=== PATIENT | female | born 1975 | race African-American/Black ===

== ENCOUNTER 2017-06-15 07:31 | Emergency (ER) | payer SELFPAY ==
[2017-06-15 08:02] LABS: Absolute Monocytes 0.4 K/uL (0.1-1.3); Absolute Neutrophil 2.4 K/uL (1.8-8.0); Eosinophils % 2.5 % (0-4.4); Hematocrit 45.1 % (36.0-45.0); Lymphocytes % 50.1 % (15.3-44.8); MCH 27.3 pg (27.0-35.0); Monocytes % 6.8 % (3.3-12.3)
[2017-06-15 08:07] LABS: Protime INR 1.07
[2017-06-15 08:13] LABS: Potassium 3.4 mEq/L (3.6-5.0)
[2017-06-15 08:19] LABS: Albumin 4.5 g/dL (3.2-5.5); Bilirubin Direct 0.1 mg/dL (0-0.2); Bilirubin Total 0.6 mg/dL (0.3-1.2); Magnesium 1.9 mg/dL (1.8-2.5); Protein, Total 7.6 g/dL (6.0-8.3)
[2017-06-15] MEDS ORDERED: LORazepam 2 MG/ML VIAL ONE (08:22)
[2017-06-15] MEDS ORDERED: NA CHLORIDE 0.9% 500 ML ONE (08:22)
[2017-06-15] MEDS ORDERED: METOPROLOL TARTRATE 5 MG/5 ML INJ IV ONE (08:54)
--- NOTE | 2017-06-15 08:56 | RAD REPORT ---
EXAM DESCRIPTION: RAD - Chest Single View - 06/15/2017 8:21 am CLINICAL HISTORY: Chest pain. COMPARISON: 06/02/2017 FINDINGS: Portable technique limits examination quality. The lungs are grossly clear. The heart is normal in size. No displaced fractures. IMPRESSION: No acute intrathoracic process suspected.
--- NOTE | 2017-06-15 09:34 | EDPHYS ---
Physician Documentation [facility] Name: Rebecca Louis Age: 41 yrs Sex: Female : 1975 Arrival Date: 06/15/2017 Time: 07:33 Bed 17 Private MD: ED Physician Jaden Valderrama HPI: 06/15 08:31 This 41 yrs old Black Female presents to ER via Ambulatory with complaints of High kdr Blood Pressure. 08:31 The patient has elevated blood pressure and discovered this at home. Onset: The kdr symptoms/episode began/occurred gradually, yesterday. Modifying factors: The symptoms are aggravated by activity. Associated signs and symptoms: Pertinent positives: chest pain. Severity of symptoms: At its worst the blood pressure was moderate, severe, just prior to arrival, in the emergency department the blood pressure is unchanged. The patient has experienced similar episodes in the past, a few times. The patient has not recently seen a physician. 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 - Social history:: Smoking status: Patient/guardian denies using tobacco, Patient/guardian denies using alcohol, street drugs. ROS: 08:31 Constitutional: Negative for fever, chills, and weight loss, Eyes: Negative for injury, kdr pain, redness, and discharge, ENT: Negative for injury, pain, and discharge, Neck: Negative for injury, pain, and swelling, Respiratory: Negative for shortness of breath, cough, wheezing, and pleuritic chest pain, Abdomen/GI: Negative for abdominal pain, nausea, vomiting, diarrhea, and constipation, Back: Negative for injury and pain, : Negative for injury, bleeding, discharge, and swelling, MS/Extremity: Negative for injury and deformity, Skin: Negative for injury, rash, and discoloration, Neuro: Negative for headache, weakness, numbness, tingling, and seizure activity. Allergy/Immunology: Negative for hives, rash, and allergies, Endocrine: Negative for neck swelling, polydipsia, polyuria, polyphagia, and marked weight changes, Hematologic/Lymphatic: Negative for swollen nodes, abnormal bleeding, and unusual bruising. 08:31 Cardiovascular: Positive for chest pain, Negative for edema, orthopnea, palpitations, paroxysmal nocturnal dyspnea, acute changes. 08:31 Psych: Positive for anxiety, Negative for depression, drug dependence, alcohol dependence, auditory hallucinations, visual hallucinations, homicidal ideation, insomnia, suicide gesture, suicidal ideation. Exam: 08:31 Constitutional: This is a well developed, well nourished patient who is awake, alert, kdr and in moderate distress. Head/Face: Normocephalic, atraumatic. Eyes: Pupils equal round and reactive to light, extra-ocular motions intact. Lids and lashes normal. Conjunctiva and sclera are non-icteric and not injected. Cornea within normal limits. Periorbital areas with no swelling, redness, or edema. Neck: Trachea midline, no thyromegaly or masses palpated, and no cervical lymphadenopathy. Supple, full range of motion without nuchal rigidity, or vertebral point tenderness. No Meningismus. Chest/axilla: Normal chest wall appearance and motion. Nontender with no deformity. No lesions are appreciated. Respiratory: Lungs have equal breath sounds bilaterally, clear to auscultation and percussion. No rales, rhonchi or wheezes noted. No increased work of breathing, no retractions or nasal flaring. Abdomen/GI: Soft, non-tender, with normal bowel sounds. No distension or tympany. No guarding or rebound. No evidence of tenderness throughout. Back: No spinal tenderness. No costovertebral tenderness. Full range of motion. Skin: Warm, dry with normal turgor. Normal color with no rashes, no lesions, and no evidence of cellulitis. MS/ Extremity: Pulses equal, no cyanosis. Neurovascular intact. Full, normal range of motion. Neuro: Awake and alert, GCS 15, oriented to person, place, time, and situation. Cranial nerves II-XII grossly intact. Motor strength 5/5 in all extremities. Sensory grossly intact. Cerebellar exam normal. Normal gait. 08:31 Cardiovascular: Rate: tachycardic, Rhythm: regular, Pulses: no pulse deficits are appreciated, Heart sounds: normal, Edema: is not appreciated, JVD: is not appreciated. 08:31 Psych: Behavior/mood is pleasant, cooperative, anxious, Affect is animated, Oriented to person, place, time, Patient has no thoughts/intents to harm self or others. Judgement / Insight is normal. Memory is normal. Delusions/hallucinations are not present. Vital Signs: 07:43 BP 187 / 118; Pulse 122; Resp 22; Temp 97.7; Pulse Ox 99% on R/A; Weight 79.38 kg; ch Height 5 ft. 2 in. (157.48 cm); Pain 3/10; 08:10 BP 151 / 104; Pulse 98; Resp 16; Temp 98.2; Pulse Ox 99% on R/A; Pain 2/10; ch 08:54 BP 145 / 99; Pulse 95; Resp 15; Pulse Ox 99% on R/A; mh5 09:02 BP 145 / 76; Pulse 86; Resp 16; Temp 98.5; Pulse Ox 99% on R/A; ch 09:34 BP 125 / 89; Pulse 87; Resp 16; Temp 97.8; Pulse Ox 99% on R/A; ch 09:58 BP 135 / 81; Pulse 78; Resp 19; Pulse Ox 98% on R/A; 07:43 Body Mass Index 32.01 (79.38 kg, 157.48 cm) MDM: 08:31 Data reviewed: vital signs, nurses notes, lab test result(s). kdr 09:33 Patient medically screened. [facility] 06/15 07:49 Order name: Basic Metabolic Panel; Complete Time: 09:31 [facility] 06/15 07:49 Order name: BNP; Complete Time: 09:31 [facility] 06/15 07:49 Order name: CBC with Diff; Complete Time: 09:31 [facility] 06/15 07:49 Order name: LFT's; Complete Time: 09:31 [facility] 06/15 07:49 Order name: Magnesium; Complete Time: 09:31 [facility] 06/15 07:49 Order name: PT-INR; Complete Time: 09:31 [facility] 06/15 07:49 Order name: Ptt, Activated; Complete Time: 09:31 [facility] 06/15 07:49 Order name: Troponin (emerg Dept Use Only); Complete Time: 09:31 [facility] 06/15 07:49 Order name: XRAY Chest (1 view); Complete Time: 09:31 [facility] 06/15 08:49 Order name: Urine Dipstick--Ancillary (enter results) bd 06/15 08:49 Order name: Urine --Ancillary (enter results) bd 06/15 07:46 Order name: EKG; Complete Time: 07:47 ch 06/15 07:46 Order name: EKG - Nurse/Tech; Complete Time: 07:59 ch 06/15 07:49 Order name: Cardiac monitoring; Complete Time: 09: kdr 06/15 07:49 Order name: IV Saline Lock; Complete Time: 09: kdr 06/15 07:49 Order name: Labs collected and sent; Complete Time: 09: kdr 06/15 07:49 Order name: O2 Per Protocol; Complete Time: : kdr 06/15 07:49 Order name: O2 Sat Monitoring; Complete Time: : kdr Administered Medications: 08:10 Drug: Ativan 1 mg Route: IVP; Site: right antecubital; ch 09:13 Follow up: Response: No adverse reaction; Marked relief of symptoms ch 08:10 Drug: NS 0.9% 500 ml Route: IV; Rate: bolus; Site: right antecubital; ch 10:15 Follow up: Response: No adverse reaction; IV Status: Completed infusion wh 08:35 Drug: Lopressor 5 mg Route: IVP; Site: right antecubital; ch 08:50 Drug: Lopressor 5 mg Route: IVP; Site: right antecubital; ch 09:14 Follow up: Response: No adverse reaction ch 09:59 Follow up: Response: No adverse reaction; pt bp holding at 130's systolic. pt states ch she feels much better but dizzy when she stands up. third dose held due to pt status. Disposition: 06/15/17 09:33 Discharged to Home. Impression: HTN, poorly controlled; generalized anxiety. - Condition is Stable. - Discharge Instructions: Hypertension, [id number], Generalized Anxiety Disorder. - Prescriptions for Ativan 1 mg Oral Tablet - take 1 tablet by ORAL route every 8-12 hours As needed; 8 tablet. Lopressor 50 mg Oral Tablet - take 1 tablet by ORAL route every 12 hours; 30 tablet. - Medication Reconciliation Form, Thank You Letter form. - Follow up: Private Physician; When: 2 - 3 days; Reason: If symptoms return, Further diagnostic work-up, Recheck today's complaints, Continuance of care, Re-evaluation by your physician. - Problem is an acute exacerbation. - Symptoms are resolved. Signatures: Dispatcher [employer] Hedy Duff, IWONA RN Jaden Valderrama MD MD [facility] Chrissie Rey
--- NOTE | 2017-06-15 09:34 | ER ---
Nurse's Notes [facility] Name: Rebecca Louis Age: 41 yrs Sex: Female : 1975 Arrival Date: 06/15/2017 Time: 07:33 Bed 17 Private MD: Diagnosis: HTN, poorly controlled; generalized anxiety Presentation: 06/15 07:40 Presenting complaint: Patient states: I was seen here a week ago and Dx with hypertension. they gave me norvasc. it gives me hives. I took two this morning though because my pressure was high. chest pain on and off for 3 weeks, headache on and off for 3 weeks, SOB, blurred vision. Transition of care: patient was not received from another setting of care. Onset of symptoms was May 27, 2017. Care prior to arrival: [place]. 07:40 Method Of Arrival: Ambulatory 07:40 Acuity: GABE 3 Triage Assessment: 07:43 General: Appears in no apparent distress. uncomfortable, Behavior is anxious, restless. Pain: Complains of pain in head, back of neck and chest Pain currently is 3 out of 10 on a pain scale. Pain began 3 weeks ago. Is intermittent. Neuro: Level of Consciousness is awake, alert, obeys commands, Oriented to person, place, time, situation, Leather Sponger are equal bilaterally Moves all extremities. Full function Gait is steady, Speech is normal, Facial symmetry appears normal, Facial symmetry: tongue is midline, Pupils are PERRLA. Cardiovascular: Heart tones S1 S2 present. Cardiovascular: Reports chest pain, lightheadedness, nausea, shortness of breath, Capillary refill < 3 seconds in bilateral fingers toes Clubbing of nail beds is absent. Respiratory: Airway is patent Respiratory effort is even, unlabored, Breath sounds are clear bilaterally. GI: No signs and/or symptoms were reported involving the gastrointestinal system. Derm: Skin is pink, warm \T\ dry. Musculoskeletal: No signs and/or symptoms reported regarding the musculoskeletal system. 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 - Social history:: Smoking status: Patient/guardian denies using tobacco, Patient/guardian denies using alcohol, street drugs. Screenin:13 Abuse screen: Denies threats or abuse. Denies injuries from another. Nutritional wh screening: No deficits noted. Tuberculosis screening: No symptoms or risk factors identified. Fall Risk None identified. Assessment: 07:46 Reassessment: Patient appears in no apparent distress at this time. No changes from previously documented assessment. Patient and/or family updated on plan of care and expected duration. Pain level reassessed. pt hands and feet have been swelling intermittnatly. 08:10 Reassessment: Patient appears in no apparent distress at this time. Patient and/or ch family updated on plan of care and expected duration. Pain level reassessed. Patient states feeling better. Patient states symptoms have improved. 08:55 Reassessment: Patient appears in no apparent distress at this time. Patient and/or ch family updated on plan of care and expected duration. Pain level reassessed. Patient is alert, oriented x 3, equal unlabored respirations, skin warm/dry/pink. 09:02 Reassessment: Patient appears in no apparent distress at this time. Patient and/or ch family updated on plan of care and expected duration. Pain level reassessed. Patient is alert, oriented x 3, equal unlabored respirations, skin warm/dry/pink. Patient states feeling better. Patient states symptoms have improved. 09:03 Reassessment: pt states she felt slightly dizzy after administration of second ch metoprolol. will wait to administer third dose. 09:34 Reassessment: Patient appears in no apparent distress at this time. Patient and/or ch family updated on plan of care and expected duration. Pain level reassessed. Patient is alert, oriented x 3, equal unlabored respirations, skin warm/dry/pink. Patient states feeling better. Patient states symptoms have improved. 09:57 Reassessment: AWAITING ERP TO REVIEW RESULTS WITH PT PRIOR TO DISCHARGE. pt ambulatory, denies pain, aaox4, states she feel better. General: Appears in no apparent distress. comfortable, Behavior is calm, cooperative, appropriate for age. Vital Signs: 07:43 BP 187 / 118; Pulse 122; Resp 22; Temp 97.7; Pulse Ox 99% on R/A; Weight 79.38 kg; ch Height 5 ft. 2 in. (157.48 cm); Pain 3/10; 08:10 BP 151 / 104; Pulse 98; Resp 16; Temp 98.2; Pulse Ox 99% on R/A; Pain 2/10; ch 08:54 BP 145 / 99; Pulse 95; Resp 15; Pulse Ox 99% on R/A; 5 09:02 BP 145 / 76; Pulse 86; Resp 16; Temp 98.5; Pulse Ox 99% on R/A; ch 09:34 BP 125 / 89; Pulse 87; Resp 16; Temp 97.8; Pulse Ox 99% on R/A; ch 09:58 BP 135 / 81; Pulse 78; Resp 19; Pulse Ox 98% on R/A; ch 07:43 Body Mass Index 32.01 (79.38 kg, 157.48 cm) ED Course: 07:33 Patient arrived in ED. mr 07:39 Jaden Valderrama MD is Attending Physician. kdr 07:40 Hedy Kat, IWONA is Primary Nurse. ch 07:42 Triage completed. ch 07:43 Arm band placed on left wrist. Patient placed in an exam room, on a stretcher, on diagnostic cardiac sonographer, on pulse oximetry. 07:56 Inserted saline lock: 20 gauge in right antecubital area, using aseptic technique. Blood collected. 07:58 EKG done, by oven technician. reviewed by Jaden Valderrama MD. tc 08:21 XRAY Chest (1 view) In Process Unspecified. EDMS 10:13 Patient has correct armband on for positive identification. Placed in gown. Bed in low wh position. Call light in reach. Side rails up X 1. Pulse ox on. NIBP on. 10:14 No provider procedures requiring assistance completed. IV discontinued, intact, wh bleeding controlled, No redness/swelling at site. Administered Medications: 08:10 Drug: Ativan 1 mg Route: IVP; Site: right antecubital; 09:13 Follow up: Response: No adverse reaction; Marked relief of symptoms 08:10 Drug: NS 0.9% 500 ml Route: IV; Rate: bolus; Site: right antecubital; 10:15 Follow up: Response: No adverse reaction; IV Status: Completed infusion 08:35 Drug: Lopressor 5 mg Route: IVP; Site: right antecubital; 08:50 Drug: Lopressor 5 mg Route: IVP; Site: right antecubital; 09:14 Follow up: Response: No adverse reaction 09:59 Follow up: Response: No adverse reaction; pt bp holding at 130's systolic. pt states ch she feels much better but dizzy when she stands up. third dose held due to pt status. Intake: Outcome: 09:33 Discharge ordered by . kdr 10:14 Discharged to home ambulatory, with family. 10:14 Condition: improved 10:14 Discharge instructions given to patient, family, Instructed on discharge instructions, follow up and referral plans. medication usage, POC hypertension Demonstrated understanding of instructions, follow-up care, medications. 10:15 Patient left the ED. Signatures: Dispatcher [employer] EDHedy Weber RN RN Jaden Summers MD MD kdr Rivera, Maria mr Callis, Tiffany, production scheduler EKG [facility] Teresa Yeager [facility] Chrissie Rey
[2017-06-15 09:40] LABS: Urine Blood TRACE (NEG); Urine Glucose NEGATIVE (NEG); Urine Protein NEGATIVE (NEG)
--- NOTE | 2017-06-15 11:59 | EKG ---
Test Date: 2017-06-15 Test Time: 06:51:42 Alarm Signal Operator: DEVON MEASUREMENT RESULTS: Intervals: Rate: 109 NJ: 142 QRSD: 88 QT: 344 QTc: 463 [place]: P: 70 NJ: 142 QRS: 41 T: 14 INTERPRETIVE STATEMENTS: Sinus tachycardia Nonspecific T wave abnormality Abnormal ECG Compared to ECG 06/02/2017 20:58:23 T-wave abnormality now present Sinus rhythm no longer present Electronically Signed On 06-15-17 11:57:14 CDT by eRdd Aquino
== END 2017-06-15 10:15 | disposition home or self-care (01) ==
LOC: ER 07:31
DX: I10 Essential (primary) hypertension (principal); F41.9 Anxiety disorder, unspecified
CPT/HCPCS: 36415; 71045; 80048; 80076; 81003; 81025; 83735; 83880; 84484; 85025; 85610; 85730; 93005; 96361; 96374; 96375; 99284

== ENCOUNTER 2017-07-19 04:17 | Emergency (ER) | payer SELFPAY ==
--- NOTE | 2017-07-19 04:46 | ER ---
Nurse's Notes [facility] Name: Rebecca Louis Age: 41 yrs Sex: Female : 1975 Arrival Date: 07/19/2017 Time: 04:21 Bed 4 Private MD: Diagnosis: Essential (primary) hypertension Presentation: 07/19 04:34 Presenting complaint: Patient states: I WOKE UP AND FELT ALL RESTLESS AND I CHECKED MY bp PRESSURE AND IT WAS HIGH. Transition of care: patient was not received from another setting of care. Onset of symptoms was July 19, 2017 at 03:00. Care prior to arrival: None. 04:34 Method Of Arrival: Ambulatory bp 04:34 Acuity: GABE 4 bp Triage Assessment: 04:37 General: Appears in no apparent distress. comfortable, Behavior is calm, cooperative, bp appropriate for age. Pain: Denies pain. EENT: No deficits noted. Neuro: Level of Consciousness is awake, alert, obeys commands, Oriented to person, place, time, situation, Appropriate for age. Cardiovascular: No deficits noted. Respiratory: Airway is patent Respiratory effort is even, unlabored, Respiratory pattern is regular, symmetrical. GI: No signs and/or symptoms were reported involving the gastrointestinal system. : No signs and/or symptoms were reported regarding the genitourinary system. Derm: No deficits noted. Musculoskeletal: Circulation, motion, and sensation intact. Range of motion: intact in all extremities. 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 - Social history:: Smoking status: Patient/guardian denies using tobacco. Screenin:39 Abuse screen: Denies threats or abuse. Denies injuries from another. Nutritional bp screening: No deficits noted. Tuberculosis screening: No symptoms or risk factors identified. Fall Risk None identified. Assessment: 04:39 General: SEE TRIAGE NOTE. bp 04:54 Reassessment: PT DC HOME AMBULATORY WITH FAMILY, S/S RELIEVED, DX WITH ESSENTIAL HTN, bp TO F/U WITH PCP. Vital Signs: 04:37 BP 159 / 92; Pulse 74; Resp 18; Temp 98.1; Pulse Ox 100% ; Weight 79.83 kg; Height 5 bp ft. 2 in. (157.48 cm); 04:37 Body Mass Index 32.19 (79.83 kg, 157.48 cm) bp ED Course: 04:21 Patient arrived in ED. al2 04:25 Rogelio Dickens MD is Attending Physician. 04:30 Deven Romero, RN is Primary Nurse. bp 04:35 Triage completed. bp 04:37 Arm band placed on. bp 04:39 Patient has correct armband on for positive identification. Bed in low position. Call bp light in reach. Side rails up X2. Adult w/ patient. 04:44 Issa Deleon MD is Referral Physician. gs 04:55 No provider procedures requiring assistance completed. Patient did not have IV access bp during this emergency room visit. Administered Medications: No medications were administered Outcome: 04:45 Discharge ordered by . gs 04:55 Discharged to home ambulatory, with family. bp 04:55 Condition: stable 04:55 Discharge instructions given to patient, Instructed on discharge instructions, follow up and referral plans. Demonstrated understanding of instructions, follow-up care. 04:55 Patient left the ED. bp Signatures: Rogelio Dickens MD MD Deven Romero, RN RN Chelsey Molina al2
--- NOTE | 2017-07-19 04:46 | EDPHYS ---
Physician Documentation [facility] Name: Rebecca Louis Age: 41 yrs Sex: Female : 1975 Arrival Date: 07/19/2017 Time: 04:21 Bed 4 Private MD: ED Physician Rogelio Dickens HPI: 07/19 06:17 This 41 yrs old Black Female presents to ER via Ambulatory with complaints of High gs Blood Pressure. 06:17 The patient has elevated blood pressure and discovered this at home, with a home gs device. Onset: The symptoms/episode began/occurred today. Modifying factors: The symptoms are aggravated by activity. Associated signs and symptoms: Pertinent negatives: chest pain, dizziness, dyspnea, lightheadedness, vomiting, weakness. Severity of symptoms: At its worst the blood pressure was severe, in the emergency department the blood pressure is improved, moderately. The patient has experienced similar episodes in the past. The patient has not recently seen a physician. 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 - Social history:: Smoking status: Patient/guardian denies using tobacco. ROS: 06:17 All other systems are negative. gs Exam: 06:17 Head/Face: Normocephalic, atraumatic. Eyes: Pupils equal round and reactive to light, gs extra-ocular motions intact. Lids and lashes normal. Conjunctiva and sclera are non-icteric and not injected. Cornea within normal limits. Periorbital areas with no swelling, redness, or edema. ENT: Nares patent. No nasal discharge, no septal abnormalities noted. Tympanic membranes are normal and external auditory canals are clear. Oropharynx with no redness, swelling, or masses, exudates, or evidence of obstruction, uvula midline. Mucous membranes moist. Neck: Trachea midline, no thyromegaly or masses palpated, and no cervical lymphadenopathy. Supple, full range of motion without nuchal rigidity, or vertebral point tenderness. No Meningismus. Chest/axilla: Normal chest wall appearance and motion. Nontender with no deformity. No lesions are appreciated. Cardiovascular: Regular rate and rhythm with a normal S1 and S2. No gallops, murmurs, or rubs. Normal PMI, no JVD. No pulse deficits. Respiratory: Lungs have equal breath sounds bilaterally, clear to auscultation and percussion. No rales, rhonchi or wheezes noted. No increased work of breathing, no retractions or nasal flaring. Abdomen/GI: Soft, non-tender, with normal bowel sounds. No distension or tympany. No guarding or rebound. No evidence of tenderness throughout. Back: No spinal tenderness. No costovertebral tenderness. Full range of motion. Skin: Warm, dry with normal turgor. Normal color with no rashes, no lesions, and no evidence of cellulitis. MS/ Extremity: Pulses equal, no cyanosis. Neurovascular intact. Full, normal range of motion. Neuro: Awake and alert, GCS 15, oriented to person, place, time, and situation. Cranial nerves II-XII grossly intact. Motor strength 5/5 in all extremities. Sensory grossly intact. Cerebellar exam normal. Normal gait. 06:17 Constitutional: The patient appears alert, awake. Vital Signs: 04:37 BP 159 / 92; Pulse 74; Resp 18; Temp 98.1; Pulse Ox 100% ; Weight 79.83 kg; Height 5 bp ft. 2 in. (157.48 cm); 04:37 Body Mass Index 32.19 (79.83 kg, 157.48 cm) bp MDM: 04:44 Patient medically screened. 06:17 Differential diagnosis: hypertensive crisis, Malignant HTN. Data reviewed: vital signs, nurses notes. Counseling: I had a detailed discussion with the patient and/or guardian regarding: the need for outpatient follow up. Response to treatment: the patient's symptoms have markedly improved after treatment, and as a result, I will discharge patient. Administered Medications: No medications were administered Disposition: 07/19/17 04:45 Discharged to Home. Impression: Essential (primary) hypertension. - Condition is Stable. - Discharge Instructions: Hypertension, Managing Your High Blood Pressure. - Medication Reconciliation Form, Thank You Letter, Antibiotic Education, Prescription Opioid Use form. - Follow up: Issa Deleon MD; When: 2 - 3 days; Reason: Re-evaluation by your physician. Signatures: Rogelio Dickens MD MD gs Peltier, Brian, RN RN bp
== END 2017-07-19 04:55 | disposition home or self-care (01) ==
LOC: ER 04:17
DX: I10 Essential (primary) hypertension (principal); F41.9 Anxiety disorder, unspecified
CPT/HCPCS: 99281

== ENCOUNTER 2017-07-29 23:07 | Emergency (ER) | payer SELFPAY ==
[2017-07-29] MEDS ORDERED: cloNIDine HCl 0.1 MG TAB ONE (23:47)
[2017-07-30] MEDS ORDERED: NA CHLORIDE 0.9% 1,000 ML ONE (00:53)
[2017-07-30 01:30] LABS: Absolute Lymphocytes (CBC) 1.9 K/uL (0.7-4.9); Absolute Monocytes 0.4 K/uL (0.1-1.3); Absolute Neutrophil 4.2 K/uL (1.8-8.0); Basophils % 0.9 % (0-1.3); Eosinophils % 2.1 % (0-4.4); Hematocrit 44.8 % (36.0-45.0); Lymphocytes % 28.6 % (15.3-44.8); MCH 27.3 pg (27.0-35.0); MCV 85.5 fL (80-100); MPV 10.1 fL (7.6-11.3); RBC Red Blood Cell Count 5.24 M/uL (3.86-4.86)
[2017-07-30 01:51] LABS: Potassium 4.1 mEq/L (3.6-5.0)
--- NOTE | 2017-07-30 02:14 | EDPHYS ---
Physician Documentation [facility] Name: Rebecca Louis Age: 41 yrs Sex: Female : 1975 Arrival Date: 07/29/2017 Time: 23:08 Bed 8 Private MD: ED Physician Monty Mas HPI: 07/30 00:40 This 41 yrs old Black Female presents to ER via Ambulatory with complaints of High snw Blood Pressure, Anxiety. 00:40 The patient has elevated blood pressure and discovered this at [facility]. Onset: The symptoms/episode began/occurred gradually, 2 month(s) ago. Modifying factors: The symptoms are aggravated by palpitations. Associated signs and symptoms: The patient has no apparent associated signs or symptoms. Severity of symptoms: At its worst the blood pressure was 180 mm Hg. The patient has experienced similar episodes in the past, several times. The patient has not recently seen a physician, Is going to see Dr. Deelon, working out insurance as pt just moved from [place]. Pt states when she has palpitations here blood pressure skyrockets. 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 - Social history:: Smoking status: Patient/guardian denies using tobacco, Patient/guardian denies using alcohol, street drugs. ROS: 07/30 00:39 Eyes: Negative for injury, pain, redness, and discharge, ENT: Negative for injury, snw pain, and discharge, Neck: Negative for injury, pain, and swelling. Respiratory: Negative for shortness of breath, cough, wheezing, and pleuritic chest pain, Abdomen/GI: Negative for abdominal pain, nausea, vomiting, diarrhea, and constipation, Back: Negative for injury and pain, : Negative for injury, bleeding, discharge, and swelling, MS/Extremity: Negative for injury and deformity, Skin: Negative for injury, rash, and discoloration, Neuro: Negative for headache, weakness, numbness, tingling, and seizure. Constitutional: Positive for body aches. Cardiovascular: Positive for palpitations. Psych: Positive for "my mother in law told me I was having panic attacks but I don't know why I would, I've never had them before". Exam: 00:39 Constitutional: This is a well developed, well nourished patient who is awake, alert, snw and in no acute distress. Head/Face: Normocephalic, atraumatic. Eyes: Pupils equal round and reactive to light, extra-ocular motions intact. Lids and lashes normal. Conjunctiva and sclera are non-icteric and not injected. Cornea within normal limits. Periorbital areas with no swelling, redness, or edema. ENT: Nares patent. No nasal discharge, no septal abnormalities noted. Tympanic membranes are normal and external auditory canals are clear. Oropharynx with no redness, swelling, or masses, exudates, or evidence of obstruction, uvula midline. Mucous membranes moist. Neck: Trachea midline, no thyromegaly or masses palpated, and no cervical lymphadenopathy. Supple, full range of motion without nuchal rigidity, or vertebral point tenderness. No Meningismus. Chest/axilla: Normal chest wall appearance and motion. Nontender with no deformity. No lesions are appreciated. Cardiovascular: Regular rate and rhythm with a normal S1 and S2. No gallops, murmurs, or rubs. Normal PMI, no JVD. No pulse deficits. Respiratory: Lungs have equal breath sounds bilaterally, clear to auscultation and percussion. No rales, rhonchi or wheezes noted. No increased work of breathing, no retractions or nasal flaring. Abdomen/GI: Soft, non-tender, with normal bowel sounds. No distension or tympany. No guarding or rebound. No evidence of tenderness throughout. Back: No spinal tenderness. No costovertebral tenderness. Full range of motion. Skin: Warm, dry with normal turgor. Normal color with no rashes, no lesions, and no evidence of cellulitis. MS/ Extremity: Pulses equal, no cyanosis. Neurovascular intact. Full, normal range of motion. Neuro: Awake and alert, GCS 15, oriented to person, place, time, and situation. Cranial nerves II-XII grossly intact. Motor strength 5/5 in all extremities. Sensory grossly intact. Cerebellar exam normal. Normal gait. Vital Signs: 07/29 23:10 BP 165 / 116; Pulse 80; Resp 18; Temp 97.7(O); Pulse Ox 100% on R/A; Weight 78.02 kg fc (R); Height 5 ft. 2 in. (157.48 cm) (R); Pain 5/10; 07/30 00:51 BP 108 / 75; Pulse 68; Resp 18; Pulse Ox 100% on R/A; ak1 02:01 BP 107 / 78; Pulse 68; Resp 16; Temp 97.8; Pulse Ox 99% on R/A; Pain 2/10; ak1 07/29 23:10 Body Mass Index 31.46 (78.02 kg, 157.48 cm) fc MDM: 07/29 23:37 Patient medically screened. snw 07/30 02:15 Data reviewed: vital signs, nurses notes. Data interpreted: Pulse oximetry: on room air snw is 99 %. Interpretation: normal. Counseling: I had a detailed discussion with the patient and/or guardian regarding: the historical points, exam findings, and any diagnostic results supporting the discharge/admit diagnosis, lab results, the need for outpatient follow up, to return to the emergency department if symptoms worsen or persist or if there are any questions or concerns that arise at home. Special discussion: Based on the patient's history, exam, and Dx evaluation, there is no indication for emergent intervention or inpatient Tx. It is understood by the patient/guardian that if the Sx's persist or worsen they need to return immediately for re-evaluation. Based on the history and exam findings, there is no indication for further emergent testing or inpatient evaluation. I discussed with the patient/guardian the need to see the track walker for further evaluation of the symptoms. I discussed with the patient/guardian the need to see the primary care provider for further evaluation of the symptoms. 07/30 00:27 Order name: CBC with Diff; Complete Time: 01:51 snw 07/30 00:27 Order name: Troponin (emerg Dept Use Only); Complete Time: 01:51 snw 07/30 00:27 Order name: TSH; Complete Time: 02:32 snw 07/30 00:27 Order name: Chem 7; Complete Time: 02:32 snw 07/29 23:40 Order name: EKG; Complete Time: 23:41 snw 07/29 23:40 Order name: EKG - Nurse/Tech; Complete Time: 23:49 snw 07/30 01:52 Order name: EKG; Complete Time: 01:52 snw Administered Medications: 07/29 23:49 Drug: cloNIDine 0.1 mg Route: PO; bp 07/30 00:36 Follow up: Response: Marked relief of symptoms bp 01:12 Drug: NS 0.9% 1000 ml Route: IV; Rate: 75 ml/hr; Site: right antecubital; ak1 02:23 Follow up: IV Status: Order to discontinue infusion ak1 Disposition: 14:29 Co-signature as Attending Physician, Monty Mas MD I agree with the assessment and katie plan of care. Disposition: 07/30/17 02:14 Discharged to Home. Impression: Essential (primary) hypertension, Palpitations. - Condition is Stable. - Discharge Instructions: Nonspecific Chest Pain, Hypertension, Palpitations, How to Take Your Blood Pressure, [id number], DASH Eating Plan, Managing Your High Blood Pressure. - Prescriptions for Clonidine 0.1 mg Oral Tablet - take 1 tablet by ORAL route every 8-12 hours only as needed; 30 tablet. - Medication Reconciliation Form, Thank You Letter, Antibiotic Education, Prescription Opioid Use, Work release form, Family Work Release form. - Follow up: Private Physician; When: 2 - 3 days; Reason: Recheck today's complaints, Continuance of care, Re-evaluation by your physician. Follow up: Emergency Department; When: As needed; Reason: Worsening of condition. Signatures: Dispatcher [employer] Monty Ignacio MD MD cha Therrien, Shelly, BABBITT SPINNER-C BABBITT SPINNER-Csnw Nancie Trinidad RN RN Maddi Schultz RN RN ak1 Deven Romero, RN RN bp
--- NOTE | 2017-07-30 02:14 | ER ---
Nurse's Notes [facility] Name: Rebecca Louis Age: 41 yrs Sex: Female : 1975 Arrival Date: 07/29/2017 Time: 23:08 Bed 8 Private MD: Diagnosis: Essential (primary) hypertension;Palpitations Presentation: 07/29 23:10 Presenting complaint: Patient states: that she all of a sudden started to having fc shaking, elevated blood pressure, chest tenderness and increasing anxiety. Denies any shortness of breath, nausea or vomiting. States she did have bad anxiety attack yesterday and thinks maybe that is what is causing her chest tenderness. Transition of care: patient was not received from another setting of care. Onset of symptoms was July 29, 2017. Initial Sepsis Screen: Does the patient meet any 2 criteria? No. Patient's initial sepsis screen is negative. Does the patient have a suspected source of infection? No. Patient's initial sepsis screen is negative. Care prior to arrival: Medication(s) given: Ativan 1 mg at 2300. 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 - Social history:: Smoking status: Patient/guardian denies using tobacco, Patient/guardian denies using alcohol, street drugs. Screenin:10 Abuse screen: Denies threats or abuse. Nutritional screening: No deficits noted. fc Tuberculosis screening: No symptoms or risk factors identified. Fall Risk None identified. Assessment: 23:30 General: Appears in no apparent distress. comfortable, Behavior is cooperative, bp appropriate for age, anxious. Pain: Denies pain. Neuro: Level of Consciousness is awake, alert, obeys commands, Oriented to person, place, time, situation, Appropriate for age. Cardiovascular: Rhythm is sinus rhythm. Respiratory: Airway is patent Respiratory effort is even, unlabored, Respiratory pattern is regular, symmetrical. GI: No signs and/or symptoms were reported involving the gastrointestinal system. : No signs and/or symptoms were reported regarding the genitourinary system. EENT: No deficits noted. Derm: No deficits noted. Musculoskeletal: Circulation, motion, and sensation intact. Range of motion: intact in all extremities. Vital Signs: 23:10 BP 165 / 116; Pulse 80; Resp 18; Temp 97.7(O); Pulse Ox 100% on R/A; Weight 78.02 kg fc (R); Height 5 ft. 2 in. (157.48 cm) (R); Pain 5/10; 07/30 00:51 BP 108 / 75; Pulse 68; Resp 18; Pulse Ox 100% on R/A; ak1 02:01 BP 107 / 78; Pulse 68; Resp 16; Temp 97.8; Pulse Ox 99% on R/A; Pain 2/10; ak1 07/29 23:10 Body Mass Index 31.46 (78.02 kg, 157.48 cm) ED Course: 07/29 23:08 Patient arrived in ED. do 23:10 Arm band placed on Patient placed in an exam room, on a stretcher. fc 23:10 Patient has correct armband on for positive identification. Placed in gown. Bed in low fc position. Call light in reach. secured entrance monitor on. Pulse ox on. NIBP on. 23:29 Triage completed. fc 23:36 Aida Lopez FNP-C is [facility]. snw 23:36 Monty Mas MD is Attending Physician. snw 23:47 Maddi Schultz, IWONA is Primary Nurse. ak1 23:51 EKG done, by ED staff, reviewed by Aida VALLE. cc 07/30 00:51 No provider procedures requiring assistance completed. ak1 01:12 Inserted saline lock: 20 gauge in right antecubital area, using aseptic technique. ak1 Blood collected. 02:23 IV discontinued, intact, bleeding controlled, No redness/swelling at site. Pressure ak1 dressing applied. Administered Medications: 07/29 23:49 Drug: cloNIDine 0.1 mg Route: PO; bp 07/30 00:36 Follow up: Response: Marked relief of symptoms bp 01:12 Drug: NS 0.9% 1000 ml Route: IV; Rate: 75 ml/hr; Site: right antecubital; ak1 02:23 Follow up: IV Status: Order to discontinue infusion ak1 Outcome: 02:14 Discharge ordered by . snw 02:22 Discharged to home ambulatory, with family. ak1 02:22 Condition: stable 02:22 Discharge instructions given to patient, Instructed on discharge instructions, follow up and referral plans. no drinking with medication, no driving heavy equipment, medication usage, Demonstrated understanding of instructions, follow-up care, medications, Prescriptions given X 1. 02:36 Patient left the ED. ak1 Signatures: Aida Lopez, FAMILY LITERACY COORDINATOR-C FAMILY LITERACY COORDINATOR-Csnw Nancie Trinidad RN RN Huong Estrada Amber, RN RN ak1 Harriet Panchal Brian, RN RN bp
[2017-07-30 02:21] LABS: Thyroid Stimulating Hormone 1.66 uIU/mL (0.34-5.60)
--- NOTE | 2017-07-30 16:27 | EKG ---
Test Date: 2017-07-29 Test Time: 23:46:50 Pillowcase Maker: MALINI MEASUREMENT RESULTS: Intervals: Rate: 72 [place]: 166 QRSD: 96 QT: 384 QTc: 420 [place]: P: 66 [place]: 166 QRS: 20 T: 22 INTERPRETIVE STATEMENTS: Normal sinus rhythm Nonspecific ST and T wave abnormality Abnormal ECG Compared to ECG 06/15/2017 06:51:42 ST (T wave) deviation now present Sinus tachycardia no longer present T-wave abnormality no longer present Electronically Signed On 07-30-17 16:23:50 CDT by Redd Aquino
--- NOTE | 2017-07-30 16:27 | EKG ---
Test Date: 2017-07-30 Test Time: 01:56:33 Acid Cleaner: MALINI MEASUREMENT RESULTS: Intervals: Rate: 62 [place]: 162 QRSD: 92 QT: 408 QTc: 414 [place]: P: 44 [place]: 162 QRS: 26 T: 17 INTERPRETIVE STATEMENTS: Normal sinus rhythm Normal ECG Compared to ECG 07/29/2017 23:46:50 ST (T wave) deviation no longer present Electronically Signed On 07-30-17 16:23:47 CDT by Redd Aquino
== END 2017-07-30 02:36 | disposition home or self-care (01) ==
LOC: ER 23:07
DX: I10 Essential (primary) hypertension (principal); R00.2 Palpitations; F41.9 Anxiety disorder, unspecified
CPT/HCPCS: 36415; 80048; 84443; 84484; 85025; 93005; 96360; 99284; J7030

== ENCOUNTER 2017-08-08 01:37 | Emergency (ER) | payer SELFPAY ==
[2017-08-08 03:31] LABS: Absolute Lymphocytes (CBC) 1.5 K/uL (0.7-4.9); Absolute Monocytes 0.4 K/uL (0.1-1.3); Absolute Neutrophil 2.5 K/uL (1.8-8.0); Basophils % 0.8 % (0-1.3); Eosinophils % 2.1 % (0-4.4); Hematocrit 46.6 % (36.0-45.0); Lymphocytes % 33.8 % (15.3-44.8); MCH 27.8 pg (27.0-35.0); MCV 84.7 fL (80-100); MPV 10.1 fL (7.6-11.3); Monocytes % 8.4 % (3.3-12.3)
[2017-08-08 03:35] LABS: Protime INR 1.17
[2017-08-08 03:41] LABS: Bicarbonate 29 mEq/L (21-31); Glucose Level 99 mg/dL (65-120); Potassium 3.4 mEq/L (3.6-5.0); Sodium Level 134 mEq/L (135-145)
[2017-08-08 03:46] LABS: Urine Blood TRACE (NEG); Urine Glucose NEGATIVE (NEG); Urine Protein NEGATIVE (NEG); Urine Specific Gravity <1.005 (1.005-1.030); Urine pH 5.5 (5.0-7.0)
[2017-08-08 03:47] LABS: ALT/SGPT 16 IU/L (10-60); AST/SGOT 17 IU/L (10-42); Albumin 4.7 g/dL (3.2-5.5); Alkaline Phosphatase 56 IU/L (42-121); BUN Blood Urea Nitrogen 10 mg/dL (6-20); Bilirubin Direct 0.1 mg/dL (0-0.2); Bilirubin Total 0.8 mg/dL (0.3-1.2); Creatine Phosphokinase 107 IU/L (22-269); Magnesium 2.2 mg/dL (1.8-2.5)
[2017-08-08 03:49] LABS: CKMB Creatine Kinase MB 0.6 ng/ml (0.3-4.0)
[2017-08-08] MEDS ORDERED: POTASSIUM CL SA 10 MEQ TAB PO ONE (04:05)
--- NOTE | 2017-08-08 04:07 | ER ---
Nurse's Notes [facility] Name: Rebecca Louis Age: 41 yrs Sex: Female : 1975 Arrival Date: 08/08/2017 Time: 01:39 Bed 19 Private MD: Diagnosis: Chest pain. Uncontrolled hypertension Presentation: 08/08 01:56 Presenting complaint: Patient states: that at about midnight she started to have chest fc pain and shortness of breath then at 0100 she started to have neck pain. She then took at Norvasc. Denies any nausea or vomiting. Transition of care: patient was not received from another setting of care. Onset of symptoms was August 08, 2017 at 00:00. Initial Sepsis Screen: Does the patient meet any 2 criteria? No. Patient's initial sepsis screen is negative. Does the patient have a suspected source of infection? No. Patient's initial sepsis screen is negative. Care prior to arrival: Medication(s) given: Lopressor at 2000, Clonidine at 2200, and Norvasc at 0030. 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 - Social history:: Smoking status: Patient/guardian denies using tobacco, Patient/guardian denies using alcohol. Screenin:18 Abuse screen: Denies threats or abuse. Nutritional screening: No deficits noted. jd3 Tuberculosis screening: No symptoms or risk factors identified. Fall Risk None identified. Assessment: 02:16 General: Appears in no apparent distress. uncomfortable, Behavior is calm, cooperative, jd3 appropriate for age. Pain: Complains of pain in chest Pain does not radiate. Pain began 2 hours ago. Neuro: Level of Consciousness is awake, alert, obeys commands, Oriented to person, place, time, situation. Cardiovascular: Heart tones S1 S2 present Capillary refill < 3 seconds Patient's skin is warm and dry. Rhythm is regular. Respiratory: Airway is patent Respiratory effort is even, unlabored, Respiratory pattern is regular, symmetrical, Breath sounds are clear bilaterally. GI: Abdomen is round Bowel sounds present X 4 quads. Abd is soft and non tender X 4 quads. : No signs and/or symptoms were reported regarding the genitourinary system. EENT: No signs and/or symptoms were reported regarding the EENT system. Derm: Skin is intact, Skin is dry, Skin is normal, Skin temperature is warm. Musculoskeletal: Circulation, motion, and sensation intact. Range of motion: intact in all extremities. 02:39 Reassessment: Patient appears in no apparent distress at this time. Patient and/or jd3 family updated on plan of care and expected duration. Pain level reassessed. Patient is alert, oriented x 3, equal unlabored respirations, skin warm/dry/pink. 03:47 Reassessment: Patient appears in no apparent distress at this time. Patient and/or jd3 family updated on plan of care and expected duration. Pain level reassessed. Patient is alert, oriented x 3, equal unlabored respirations, skin warm/dry/pink. 04:18 Reassessment: Patient appears in no apparent distress at this time. Patient and/or jd3 family updated on plan of care and expected duration. Pain level reassessed. Patient is alert, oriented x 3, equal unlabored respirations, skin warm/dry/pink. 04:27 Reassessment: Patient appears in no apparent distress at this time. Patient and/or jd3 family updated on plan of care and expected duration. Pain level reassessed. Patient is alert, oriented x 3, equal unlabored respirations, skin warm/dry/pink. pt reported understanding of discharge instructions, even and steady gait upon discharge. Vital Signs: 02:02 BP 146 / 96; Pulse 74; Resp 18; Temp 97.6(O); Pulse Ox 100% on R/A; Weight 75.3 kg (R); fc Height 5 ft. 2 in. (157.48 cm) (R); Pain 6/10; 02:38 BP 137 / 96; Pulse 70; Resp 15 S; Pulse Ox 100% on R/A; Pain 4/10; jd3 03:46 BP 135 / 74; Pulse 92; Resp 20 S; Pulse Ox 97% on R/A; jd3 04:17 BP 133 / 99; Pulse 62; Resp 14 S; Pulse Ox 100% on R/A; jd3 02:02 Body Mass Index 30.36 (75.30 kg, 157.48 cm) ED Course: 01:39 Patient arrived in ED. al2 01:59 Triage completed. 02:02 Arm band placed on Patient placed in an exam room, on a stretcher. 02:12 Cash Raphael MD is Attending Physician. pkl 02:18 Patient has correct armband on for positive identification. Placed in gown. Bed in low jd3 position. Call light in reach. Side rails up X 1. hair baler on. Pulse ox on. NIBP on. 02:18 Patient maintains SpO2 saturation greater than 95% on room air. jd3 02:38 Alfredo Mathis, IWONA is Primary Nurse. jd3 02:44 EKG done, by pearl technician. reviewed by Cash Raphael MD. oe 03:15 Inserted saline lock: 20 gauge in right antecubital area, using aseptic technique. jd3 Blood collected. 03:23 XRAY Chest (1 view) In Process Unspecified. EDMS 04:18 No provider procedures requiring assistance completed. jd3 04:27 IV discontinued, intact, bleeding controlled, No redness/swelling at site. Pressure jd3 dressing applied. Administered Medications: 04:10 Drug: K-Dur 20 mEq Route: PO; jd3 04:18 Follow up: Response: No adverse reaction jd3 Outcome: 04:07 Discharge ordered by . pkl 04:27 Discharged to home ambulatory, with family. jd3 04:27 Condition: stable 04:27 Discharge instructions given to patient, family, Instructed on discharge instructions, follow up and referral plans. medication usage, Demonstrated understanding of instructions, follow-up care, medications, Prescriptions given X 1. 04:30 Patient left the ED. jd3 Signatures: Dispatcher [employer] EDMS Cash Raphael MD MD pkl Chretien, Felicia, RN RN Noah Castro oe Alfredo Mathis, IWONA RN jChelsey Godoy
--- NOTE | 2017-08-08 04:08 | EDPHYS ---
Physician Documentation [facility] Name: Rebecca Louis Age: 41 yrs Sex: Female : 1975 Arrival Date: 08/08/2017 Time: 01:39 Bed 19 Private MD: ED Physician Cash Raphael HPI: 08/08 03:31 This 41 yrs old Black Female presents to ER via Ambulatory with complaints of Chest pkl Pain, Breathing Difficulty, High Blood Pressure. 03:31 The patient or guardian reports chest pain that is located primarily in the substernal pkl area. Onset: just prior to arrival, 2 hour(s) ago. The pain does not radiate. Associated signs and symptoms: Pertinent positives: elevated blood pressure. The chest pain is described as dull. The patient has experienced similar episodes in the past, several times. 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 - Social history:: Smoking status: Patient/guardian denies using tobacco, Patient/guardian denies using alcohol. ROS: 03:31 Eyes: Negative for injury, pain, redness, and discharge, ENT: Negative for injury, pkl pain, and discharge, Neck: Negative for injury, pain, and swelling. 03:31 Cardiovascular: Positive for chest pain. 03:31 Respiratory: Positive for shortness of breath. 03:31 Abdomen/GI: Negative for abdominal pain. 03:34 Back: Negative for acute changes. pkl 03:34 : Negative for urinary symptoms. 03:34 MS/extremity: Negative for acute changes. 03:34 Skin: Negative for rash. 03:34 Neuro: Negative for altered mental status. Exam: 03:34 Head/Face: Normocephalic, atraumatic. Eyes: Pupils equal round and reactive to light, pkl extra-ocular motions intact. Lids and lashes normal. Conjunctiva and sclera are non-icteric and not injected. Cornea within normal limits. Periorbital areas with no swelling, redness, or edema. ENT: Nares patent. No nasal discharge, no septal abnormalities noted. Tympanic membranes are normal and external auditory canals are clear. Oropharynx with no redness, swelling, or masses, exudates, or evidence of obstruction, uvula midline. Mucous membranes moist. Neck: Trachea midline, no thyromegaly or masses palpated, and no cervical lymphadenopathy. Supple, full range of motion without nuchal rigidity, or vertebral point tenderness. No Meningismus. Chest/axilla: Normal chest wall appearance and motion. Nontender with no deformity. No lesions are appreciated. Cardiovascular: Regular rate and rhythm with a normal S1 and S2. No gallops, murmurs, or rubs. Normal PMI, no JVD. No pulse deficits. Respiratory: Lungs have equal breath sounds bilaterally, clear to auscultation and percussion. No rales, rhonchi or wheezes noted. No increased work of breathing, no retractions or nasal flaring. Abdomen/GI: Soft, non-tender, with normal bowel sounds. No distension or tympany. No guarding or rebound. No evidence of tenderness throughout. Back: No spinal tenderness. No costovertebral tenderness. Full range of motion. Skin: Warm, dry with normal turgor. Normal color with no rashes, no lesions, and no evidence of cellulitis. MS/ Extremity: Pulses equal, no cyanosis. Neurovascular intact. Full, normal range of motion. Neuro: Awake and alert, GCS 15, oriented to person, place, time, and situation. Cranial nerves II-XII grossly intact. Motor strength 5/5 in all extremities. Sensory grossly intact. Cerebellar exam normal. Normal gait. Vital Signs: 02:02 BP 146 / 96; Pulse 74; Resp 18; Temp 97.6(O); Pulse Ox 100% on R/A; Weight 75.3 kg (R); fc Height 5 ft. 2 in. (157.48 cm) (R); Pain 6/10; 02:38 BP 137 / 96; Pulse 70; Resp 15 S; Pulse Ox 100% on R/A; Pain 4/10; jd3 03:46 BP 135 / 74; Pulse 92; Resp 20 S; Pulse Ox 97% on R/A; jd3 04:17 BP 133 / 99; Pulse 62; Resp 14 S; Pulse Ox 100% on R/A; jd3 02:02 Body Mass Index 30.36 (75.30 kg, 157.48 cm) fc MDM: 04:06 Data reviewed: vital signs, nurses notes, lab test result(s), EKG, radiologic studies, pkl plain films. 04:07 Patient medically screened. pkl 08/08 03:03 Order name: Basic Metabolic Panel; Complete Time: 03:59 jd3 08/08 03:03 Order name: BNP; Complete Time: 04:06 jd3 08/08 03:03 Order name: CBC with Diff; Complete Time: 03:59 jd3 08/08 03:03 Order name: Ckmb; Complete Time: 03:59 jd3 08/08 03:03 Order name: CPK; Complete Time: 03:59 jd3 08/08 03:03 Order name: LFT's; Complete Time: 03:59 jd3 08/08 03:03 Order name: Magnesium; Complete Time: 03:59 jd3 08/08 03:03 Order name: PT-INR; Complete Time: 03:59 jd3 08/08 03:03 Order name: Ptt, Activated; Complete Time: 03:59 jd3 08/08 03:03 Order name: Troponin (emerg Dept Use Only); Complete Time: 03:59 jd3 08/08 03:03 Order name: XRAY Chest (1 view) jd3 08/08 03:33 Order name: Urine Dipstick--Ancillary (enter results); Complete Time: 03:59 em1 08/08 03:34 Order name: D-Dimer; Complete Time: 03:59 pkl 08/08 03:03 Order name: EKG; Complete Time: 03:04 jd3 08/08 03:03 Order name: Cardiac monitoring; Complete Time: 03:04 jd3 08/08 03:03 Order name: EKG - Nurse/Tech; Complete Time: 03:04 jd3 08/08 03:03 Order name: IV Saline Lock; Complete Time: 03:26 jd3 08/08 03:03 Order name: Labs collected and sent; Complete Time: 03:26 jd3 08/08 03:03 Order name: O2 Per Protocol; Complete Time: 03:04 jd3 08/08 03:03 Order name: O2 Sat Monitoring; Complete Time: 03:04 jd3 08/08 03:03 Order name: Urine Dipstick-Ancillary (obtain specimen); Complete Time: 03: jd3 08/08 03:03 Order name: Urine Test (obtain specimen); Complete Time: 03: jd3 Administered Medications: 04:10 Drug: K-Dur 20 mEq Route: PO; jd3 04:18 Follow up: Response: No adverse reaction jd3 Disposition: 08/08/17 04:07 Discharged to Home. Impression: Chest pain. Uncontrolled hypertension. - Condition is Stable. - Prescriptions for Lisinopril 20 mg Oral Tablet - take 1 tablet by ORAL route once daily; 30 tablet. - Medication Reconciliation Form, Thank You Letter, Antibiotic Education, Prescription Opioid Use form. - Follow up: Private Physician; When: 2 - 3 days; Reason: Re-evaluation by your physician. - Problem is new. - Symptoms have improved. Signatures: Dispatcher [employer] EDMS Cash Raphael MD MD pkNancie Aguilar, RN RN Alfredo Mathis RN RN jd3 Corrections: (The following items were deleted from the chart) 04:30 04:07 08/08/2017 04:07 Discharged to Home. Impression: Chest pain. Uncontrolled jd3 hypertension. Condition is Stable. Forms are Medication Reconciliation Form, Thank You Letter, Antibiotic Education, Prescription Opioid Use. Follow up: Private Physician; When: 2 - 3 days; Reason: Re-evaluation by your physician. Problem is new. Symptoms have improved. pkl
--- NOTE | 2017-08-08 05:47 | EKG ---
Test Date: 2017-08-08 Test Time: 02:07:35 Tourist Information Officer: MILLY MEASUREMENT RESULTS: Intervals: Rate: 72 HI: 150 QRSD: 94 QT: 404 QTc: 442 [place]vel: P: 84 HI: 150 QRS: 28 T: 30 INTERPRETIVE STATEMENTS: Normal sinus rhythm Nonspecific T wave abnormality Abnormal ECG Compared to ECG 07/30/2017 01:56:33 T-wave abnormality now present Electronically Signed On 08-08-17 05:46:48 CDT by Alpesh Thakur
--- NOTE | 2017-08-08 13:33 | RAD REPORT ---
EXAM DESCRIPTION: RAD - Chest Single View - 08/08/2017 3:23 am CLINICAL HISTORY: Chest pain. COMPARISON: 06/15/2017 FINDINGS: Portable technique limits examination quality. The lungs are grossly clear. The heart is normal in size. No displaced fractures. IMPRESSION: No acute intrathoracic process suspected.
== END 2017-08-08 04:30 | disposition home or self-care (01) ==
LOC: ER 01:37
DX: I10 Essential (primary) hypertension (principal); F41.9 Anxiety disorder, unspecified
CPT/HCPCS: 36415; 71045; 80048; 80076; 81003; 82550; 82553; 83735; 83880; 84484; 85025; 85379; 85610; 85730; 93005; 99285